=== PATIENT | female | born 1995 | race Caucasian/White ===

== ENCOUNTER 2017-11-11 19:23 | Emergency (ER) | payer MEDICARE, OTHER ==
[~2017-11-11] VITALS: Ht 154.9 cm; Wt 49.0 kg
[2017-11-11 19:56] VITALS: BP 120/75
== END 2017-11-11 22:09 | disposition left against medical advice (07) ==
LOC: ER 20:58
DX: R10.9 Unspecified abdominal pain (principal); Z53.21 Procedure and treatment not carried out due to patient leaving prior to being seen by health care provider